=== PATIENT | female | born 1980 | race Caucasian/White ===

== ENCOUNTER 2021-04-24 03:04 | Emergency (ER) | payer OTHER ==
[~2021-04-24 03:04] MED LIST: MAXALT10 MG PO; NORCO 5-325 TA1 EACH PO; TOPAMAX25 MG PO
[2021-04-24 05:11] LABS: BASOPHIL 0.6 % (0-2); EOSINOPHIL 0.5 % (0-5); HCT 39.2 % (37.0-47.0); HGB 13.9 g/dl (12.5-16.0); LYMPHOCYTE 10.2 % (15-48); MCH 32.9 pg (25.0-31.0); MCHC 35.5 g/dL (32.0-36.0); MCV 92.7 fL (78.0-100.0); MONOCYTE 2.6 % (0-12); MPV 10.2 fL (6.0-9.5); NEUTROPHIL 85.8 % (41-80); NRBC 0; PLT 142 K/uL (150-400); RBC 4.23 M/uL (4.20-5.40); RDW 12.2 % (11.5-14.0); WBC 6.5 K/uL (4.0-10.5)
[2021-04-24 05:23] LABS: ALBUMIN 3.7 g/dL (3.4-5.0); BUN/CREAT RATIO (CALC) 16.9 RATIO; CREATININE 0.65 mg/dL (0.51-0.95); GLOBULIN (CALCULATION) 2.6 g/dL; POTASSIUM 2.5 mmol/L (3.5-5.1); TOTAL PROTEIN 6.3 g/dL (6.4-8.2)
[2021-04-24 05:42] LABS: LACTIC ACID 1.7 mmol/L (0.4-1.9)
[2021-04-24] MEDS ORDERED: K-DUR20 MEQ PO (05:42)
[2021-04-24 05:59] LABS: BILIRUBIN 1+ mg/dL (NEGATIVE); BLOOD NEGATIVE Ery/uL (NEGATIVE); CLARITY CLEAR (CLEAR); COLOR YELLOW (YELLOW); GLUCOSE (U) NORMAL (NORMAL); LEUKOCYTES TRACE Leu/uL (NEGATIVE); NITRITE NEGATIVE (NEGATIVE); PROTEIN 3+ mg/dL (NEGATIVE); SPECIFIC GRAVITY 1.025 (1.001-1.030)
[2021-04-24 06:13] LABS: BACTERIA 2+; SQUAMOUS EPITHELIAL CELLS 20-50
== END 2021-04-24 05:57 | disposition home or self-care (01) ==
LOC: FER 03:04
PROVIDERS: Emergency Medicine Emergency Medical Services
DX: R19.7 Diarrhea, unspecified (principal); E86.0 Dehydration; F17.200 Nicotine dependence, unspecified, uncomplicated; Z90.49 Acquired absence of other specified parts of digestive tract; Z90.89 Acquired absence of other organs; Z90.710 Acquired absence of both cervix and uterus
CPT/HCPCS: 36415; 80053; 81001; 83605; 83690; 84145; 85025; 99284; J7030

== ENCOUNTER 2022-02-06 13:44 | Emergency (ER) | payer OTHER ==
[~2022-02-06 13:44] MED LIST changes: +K-DUR20 MEQ PO
[2022-02-06 14:30] LABS: BASOPHIL 0.4 % (0-2); EOSINOPHIL 0.2 % (0-5); HCT 46.5 % (37.0-47.0); HGB 16.4 g/dl (12.5-16.0); LYMPHOCYTE 6.2 % (15-48); MCH 33.7 pg (25.0-31.0); MCHC 35.3 g/dL (32.0-36.0); MCV 95.5 fL (78.0-100.0); MONOCYTE 6.8 % (0-12); MPV 9.6 fL (6.0-9.5); NEUTROPHIL 86.1 % (41-80); NRBC 0; PLT 178 K/uL (150-400); RBC 4.87 M/uL (4.20-5.40); WBC 12.1 K/uL (4.0-10.5)
[2022-02-06 14:40] LABS: BILIRUBIN NEGATIVE (NEGATIVE); BLOOD 2+ Ery/uL (NEGATIVE); CLARITY CLEAR (CLEAR); COLOR YELLOW (YELLOW); GLUCOSE (U) NORMAL (NORMAL); LEUKOCYTES NEGATIVE Leu/uL (NEGATIVE); NITRITE NEGATIVE (NEGATIVE); PROTEIN NEGATIVE (NEGATIVE); UROBILINOGEN 0.2 mg/dL (0.2-1.0)
[2022-02-06 14:49] LABS: BACTERIA TRACE
[2022-02-06 14:51] LABS: ALBUMIN 4.6 g/dL (3.4-5.0); BILIRUBIN - TOTAL 1.5 mg/dL (0.2-1.0); BUN/CREAT RATIO (CALC) 17.9 RATIO; CREATININE 0.56 mg/dL (0.51-0.95); GLOBULIN (CALCULATION) 3.6 g/dL; POTASSIUM 3.4 mmol/L (3.5-5.1); TOTAL PROTEIN 8.2 g/dL (6.4-8.2)
[2022-02-06 15:40] LABS: CORONAVIRUS 2019 SARS-COV-2 NEGATIVE (NEGATIVE); INFLUENZA A NAA NEGATIVE (NEGATIVE)
[2022-02-06] MEDS ORDERED: ONDANSETRON HCL4 MG PO (16:26)
== END 2022-02-06 16:40 | disposition home or self-care (01) ==
LOC: FER 13:44
PROVIDERS: Nurse Practitioner Family
DX: R11.2 Nausea with vomiting, unspecified (principal); Z20.822 Contact with and (suspected) exposure to COVID-19
CPT/HCPCS: 36415; 80053; 81001; 85025; J2405; J7030; U0002